=== PATIENT | female | born 1965 | race Caucasian/White ===

== ENCOUNTER 2022-07-04 10:26 | Emergency (ER) | payer OTHER, SELFPAY ==
[2022-07-04] MEDS ORDERED: Boostrix 0.5 ML (Tdap) VIAL ONE (11:13)
[2022-07-04] MEDS ORDERED: Bacitracin 1 PK ONE (11:13)
== END 2022-07-04 11:45 | disposition home or self-care (01) ==
LOC: MADERS 10:26
DX: S81.812A Laceration without foreign body, left lower leg, initial encounter (principal); I11.0 Hypertensive heart disease with heart failure; I50.9 Heart failure, unspecified; K21.9 Gastro-esophageal reflux disease without esophagitis; E03.9 Hypothyroidism, unspecified; J44.9 Chronic obstructive pulmonary disease, unspecified; Z87.891 Personal history of nicotine dependence; Z79.82 Long term (current) use of aspirin; Z79.899 Other long term (current) drug therapy; Z79.01 Long term (current) use of anticoagulants; X58.XXXA Exposure to other specified factors, initial encounter
CPT/HCPCS: 90471; 90715; 99283